=== PATIENT | female | born 1995 | race Caucasian/White ===

== ENCOUNTER 2017-10-28 03:29 | Emergency (ER) | payer SELFPAY | END 2017-10-28 05:34 | disposition home or self-care (01) | LOC: ER 03:29 | DX: S09.90XA Unspecified injury of head, initial encounter (principal); V47.9XXA Unspecified car occupant injured in collision with fixed or stationary object in traffic accident, initial encounter; Y93.89 Activity, other specified; Y99.8 Other external cause status; Y92.410 Unspecified street and highway as the place of occurrence of the external cause | CPT/HCPCS: 70450; 71045; 72125; 99284 ==